=== PATIENT | female | born 1970 ===

== ENCOUNTER 2025-07-29 08:48 | Outpatient (CLI) | payer OTHER | END 2025-07-29 08:50 | disposition home or self-care (01) | LOC: MAMO-SONO 08:48 | PROVIDERS: ATTEND Obstetrics & Gynecology Gynecology | DX: M25.562 Pain in left knee (principal); M23.201 Derangement of unspecified lateral meniscus due to old tear or injury, left knee; N60.11 Diffuse cystic mastopathy of right breast; N60.12 Diffuse cystic mastopathy of left breast | CPT/HCPCS: 73718 ==